=== PATIENT | male | born 1960 | race Caucasian/White ===

== ENCOUNTER 2018-09-17 07:20 | Inpatient (IN) | payer BC ==
[2018-09-17 08:25] LABS: Bilirubin Negative (Negative); Blood, Urine Negative (Negative); Clarity CLEAR (Clear); Glucose, Urine (Dipstick) Negative (Negative); Leukocyte Negative (Negative); Nitrite Negative (Negative); Protein, Urine (Dipstick) Negative (Neg-Trace); Specific Gravity, Urine 1.027 (1.002-1.036); Urobilinogen 0.2 mg/dL (0.2-1.0)
[2018-09-17 08:34] LABS: #Basophils 0.1 thou/uL (0.0-0.2); #Eosinphils 0.1 thou/uL (0.0-0.7); #Lymphocytes 1.9 thou/uL (1.20-3.40); #Monocytes 1.1 thou/uL (0.11-0.59); #Neutrophils 11.6 thou/uL (1.40-6.50); %Basophils 0.5 % (0.0-1.0); %Eosinophils 0.9 % (0.0-10.0); %Lymphocytes 12.7 % (21.0-51.0); %Monocytes 7.8 % (0.0-10.0); %Neutrophils 78.2 % (42.0-75.0); Hemoglobin 14.9 g/dL (14.0-18.0); Mean Corpuscular HGB CONC 34.1 g/dL (32.0-36.0); Mean Platelet Volume 6.8 fL (7.4-10.4); Platelet Count 194 thou/uL (130-400); Red Blood Cell (RBC) Count 4.81 mill/uL (4.70-6.10); White Blood Cell (WBC) Count 14.8 thou/uL (4.8-10.8)
[2018-09-17 08:55] LABS: ALT (SGPT) 31 U/L (8-55); AST (SGOT) 21 U/L (5-34); Albumin 4.3 g/dL (3.5-5.0); Alkaline Phosphatase 63 U/L (40-150); Anion Gap 12 mmol/L (10-20); BUN (Urea Nitrogen) 14 mg/dL (8.4-25.7); Bilirubin, Total 1.1 mg/dL (0.2-1.2); Calc. Creatinine Clearance 0 mL/min (70-130); Calcium 9.6 mg/dL (7.8-10.44); Carbon Dioxide 27 mmol/L (22-29); Chloride 102 mmol/L (98-107); Estimated GFR-MDRD 76; Globulin 3.4 g/dL (2.4-3.5); Glucose 111 mg/dL (70-105); Lipase 29 U/L (8-78); Protein, Total 7.7 g/dL (6.0-8.3); Sodium 137 mmol/L (136-145)
[2018-09-17] MEDS ORDERED: Acetaminophen 500 MG TAB ONE (09:57)
--- NOTE | 2018-09-17 10:19 | CT ---
ABDOMEN CT WITHOUT CONTRAST PELVIC CT WITHOUT CONTRAST: Date: 09/17/18 HISTORY: Left lower quadrant pain. FINDINGS: ABDOMEN CT: Lung bases are clear. Normal heart size. Visualized aorta has a normal caliber. Hypoattenuation of the liver due to hepatic steatosis. Limited evaluation of the solid organs due to lack of IV contrast. No acute abnormality with regards to the solid organs. Unremarkable gallbladder. Symmetric attenuation of the kidneys. Bilaterally, no obstructive uropathy. No gastrohepatic, retrocrural, or periportal lymphadenopathy. There are enlarged mesenteric lymph nodes with associated mesenteric fat stranding involving the left abdominal mesentery. There is also evidence of mesenteric fat stranding in the left lower quadrant w ith a small amount of fluid in the left paracolic gutter. No abscess. No pneumoperitoneum. Limited evaluation of the alimentary canal by lack of oral contrast. No evidence of small bowel obstr uction. Ileocecal junction is normal. Normal caliber appendix. Scattered diverticula. There is bowel wall thickening with pericolonic fat stranding involving the distal descending colon and proximal sig moid colon compatible with diverticulitis. Remainder of the sigmoid colon is unremarkable. CT PELVIS: No mass, lymphadenopathy, free air, or free fluid. Decompressed urinary bladder, limited evaluation. No lytic or blastic lesions. IMPRESSION: 1. Sigmoid colon diverticulosis with associated diverticulitis. Reactive changes in the mesentery wi th stranding and lymphadenopathy. No evidence of perforation or abscess. 2. No evidence of obstructive uropathy. Normal caliber appendix. 3. Hepatic steatosis with areas of fatty sparing. POS: [facility]
[2018-09-17] MEDS ORDERED: metroNIDAZOLE 500 MG/100 ML BAG ONE ×2 (10:31→10:34)
[2018-09-17] MEDS ORDERED: Morphine 4 MG/ML VIAL SLOW IVP PRN (11:04)
[2018-09-17] MEDS ORDERED: Ondansetron PF 4 MG/2 ML Vial IVP PRN (11:04)
--- NOTE | 2018-09-17 11:38 | HP ---
PRIMARY CARE PROVIDER: Marilyn Escobedo MD REASON FOR CONSULTATION: Referred to [facility] by [facility] for diverticulitis. HISTORY OF PRESENT ILLNESS: The patient started feeling bad 2 days ago, left lower quadrant pain, and felt full in the left lower quadrant. It is a sharp, cramping sensation. He has had no BM since. He had nausea and vomiting this morning. He has noted no blood in his stools, no blood in his emesis. He had no chills or sweats until he had fever today. PAST MEDICAL HISTORY: Pertinent for labile hypertension, currently on no medications. ALLERGIES: HE IS ALLERGIC TO IV CONTRAST, CODEINE, AND IODINE. PAST SURGICAL HISTORY: Carpal tunnel surgery, bilateral rotator cuff surgery, bilateral left knee arthroscopic surgery. FAMILY HISTORY: Coronary artery disease in multiple members of the father's side of his family including his father, grandfather, and grandmother. Mother's history is unknown as she is not in the picture. SOCIAL HISTORY: . Full code status. is next of kin. No tobacco. He is a social drinker, drinks 2 to 3 shots of whiskey when he is in a social event. REVIEW OF SYSTEMS: GENERAL: No headaches, dizziness, or fainting. EYES: No double vision, blurred vision, flashing light. EAR, NOSE, and THROAT: No ear pain or drainage. No nasal bleeding. No trouble swallowing. CARDIAC: No chest pain, orthopnea, or paroxysmal nocturnal dyspnea. RESPIRATIONS: No cough, wheezing, or asthma. GASTROINTESTINAL: See present illness. GENITOURINARY: No hematuria, dysuria, or nocturia. MUSCULOSKELETAL: No pain or swelling in his arms or legs. NEUROLOGIC: No strokes, seizures, or focal weakness. PSYCHIATRIC: No anxiety or depression. SKIN: No bruising, bleeding, or rash. HEME/LYMPH NODES: No tender or swollen lumps under his arms, in his neck, or in his groin. PHYSICAL EXAMINATION: GENERAL: He is an alert, pleasant gentleman. He states his pain is a medium level about 5. He states it was severe earlier. VITAL SIGNS: Blood pressure 138/87, pulse 91, respirations 16, temperature 102.6 rectal, and room air sat 99. HEAD, EYES, EARS, NOSE, THROAT: Revealed pupils are equal, round, and reactive to light. Extraocular movements are intact. Sclerae are white. Tympanic membranes clear. Nose is clear. Oral mucous membranes are wet. Dental hygiene is good. NECK: Supple without jugular venous distention, adenopathy, or thyromegaly. CHEST: Clear to auscultation and percussion. HEART: regular rate and rhythm. First and second heart sounds are clear. There are no appreciated murmurs or gallops. ABDOMEN: Soft. Bowel sounds are normal. There is no hepatosplenomegaly. No masses. Bowel sounds are diminished. He has tenderness moderate to deep palpation in the left lower quadrant. There is no guarding or rebound noted. EXTREMITIES: Reveal no cyanosis, clubbing, or edema. PULSES: Carotid, radial, femoral, and dorsalis pedis pulses are intact and symmetric. SKIN: Warm and dry without bruises or rash. HEME/LYMPH: Reveals no tender or swollen lymph nodes in the axilla, inguinal, or cervical area. NEUROLOGIC: Cranial nerves 2 through 12 are intact. Moves all extremities. DIAGNOSTIC DATA: EKG, none available, I have ordered one. Radiology; CT scan of the abdomen and pelvis without contrast reveals changes of bowel thickening and fat stranding, consistent with diverticulitis in the descending colon area, reviewed by me. LABORATORY DATA: Comprehensive metabolic profile normal except for a glucose of 111. White count elevated to 14.8 with an absolute neutrophilia, hemoglobin 14.9, platelet count 194,000. Urine is clear. ADMITTING DIAGNOSES: 1. Acute abdominal pain. 2. Diverticulitis. 3. Hypertension. PLAN: Cultures were drawn in the emergency room. IV antibiotics with Cipro and Flagyl were started in the emergency room, these will be continued. Blood pressure will be monitored. He will be given morphine sulfate for pain in the short term. Job ID: [id number] [facility]
[2018-09-17 13:11] VITALS: BMI 35.4
[2018-09-17] MEDS: Sodium Chloride 0.9% 1,000 ML IV SCH ×2 (13:22→22:47)
[2018-09-17] MEDS: Acetaminophen 325 MG TAB PO PRN (16:40)
[2018-09-17] MEDS: metroNIDAZOLE 500 MG in Premix Bag 1 BAG IVPB SCH (16:52)
[2018-09-17] MEDS ORDERED: Zolpidem Tartrate 5 MG TAB PO PRN (21:00)
[2018-09-18] MEDS: Acetaminophen 325 MG TAB PO PRN ×2 (00:36→14:17)
[2018-09-18] MEDS: metroNIDAZOLE 500 MG in Premix Bag 1 BAG IVPB SCH ×3 (02:55→16:38)
[2018-09-18] MEDS: Sodium Chloride 0.9% 1,000 ML IV SCH ×3 (03:04→19:53)
[2018-09-18 06:06] LABS: #Eosinphils 0.1 thou/uL (0.0-0.7); #Lymphocytes 2.3 thou/uL (1.20-3.40); #Monocytes 0.9 thou/uL (0.11-0.59); #Neutrophils 10.5 thou/uL (1.40-6.50); %Basophils 0.3 % (0.0-1.0); %Eosinophils 0.9 % (0.0-10.0); %Lymphocytes 16.7 % (21.0-51.0); %Monocytes 6.7 % (0.0-10.0); %Neutrophils 75.5 % (42.0-75.0); Hemoglobin 13.5 g/dL (14.0-18.0); Mean Corpuscular HGB CONC 33.2 g/dL (32.0-36.0); Mean Corpuscular Hemoglobin 30.6 pg (27.0-31.0); Mean Corpuscular Volume 91.9 fL (78.0-98.0); Mean Platelet Volume 6.9 fL (7.4-10.4); Platelet Count 178 thou/uL (130-400); RBC Distribution Width 11.9 % (11.5-14.5); Red Blood Cell (RBC) Count 4.41 mill/uL (4.70-6.10); White Blood Cell (WBC) Count 13.9 thou/uL (4.8-10.8)
[2018-09-18 06:25] LABS: Anion Gap 12 mmol/L (10-20); BUN (Urea Nitrogen) 8 mg/dL (8.4-25.7); Calc. Creatinine Clearance 142 mL/min (70-130); Carbon Dioxide 23 mmol/L (22-29); Chloride 107 mmol/L (98-107); Estimated GFR-MDRD Greater than 90; Glucose 92 mg/dL (70-105); Potassium 4.1 mmol/L (3.5-5.1)
[2018-09-18 06:26] LABS: Sodium 138 mmol/L (136-145)
[2018-09-18] MEDS ORDERED: Loperamide HCl 2 MG CAP PO PRN (07:32)
[2018-09-18] MEDS ORDERED: hydrALAZINE 20 MG/ML VIAL SLOW IVP PRN (07:32)
[2018-09-18] MEDS ORDERED: Loratadine 10 MG TAB PO PRN (07:32)
[2018-09-18] MEDS ORDERED: Bisacodyl 5 MG TAB PO PRN (07:32)
[2018-09-18] MEDS ORDERED: Ondansetron ODT 4 MG TAB PO PRN (07:32)
[2018-09-18] MEDS ORDERED: Sodium Chloride 0.65% Nasal 44 ML BOT EA NARE PRN (07:32)
[2018-09-18] MEDS ORDERED: Senokot S 8.6-50 MG TAB PO PRN (07:32)
[2018-09-18] MEDS ORDERED: Diabetic Tussin 200 MG/10 ML UDCUP PO PRN (07:32)
[2018-09-18] MEDS ORDERED: Artificial Tears 18 DROP/0.9 ML EA EYE PRN (07:32)
[2018-09-18] MEDS ORDERED: HYDROcodone/Acetaminophen 5/325 mg Tablet PO PRN (07:32)
[2018-09-18] MEDS ORDERED: Cepastat Lozenges 1 LOZ PO PRN (07:32)
[2018-09-18] MEDS: Enoxaparin Sodium 40 MG/0.4 ML SYRINGE SC SCH (08:30)
[2018-09-18] MEDS: Saccharomyces boulardii 250 MG CAP PO SCH (08:31)
--- NOTE | 2018-09-18 11:17 | PDOC.PN ---
- Subjective Encounter Start Date: 09/18/18 Encounter Start Time: 08:30 -: old records requested/rev Patient seen and examined. this morning he has fever, he las less abdominal pain , personally feels better, No new complaints. No overnight events - Objective Resuscitation Status - Order Detail: 09/17/18 11:00 Resuscitation Status Routine Resuscitation Status: FULL: Full Resuscitation MAR Reviewed: Yes Vital Signs & Weight: Vital Signs (12 hours) Temp Pulse Resp BP Pulse Ox 09/18/18 07:29 99.2 F 85 16 118/84 95 09/18/18 03:54 98.8 F 85 16 109/73 93 L 09/18/18 03:00 99 F 09/18/18 00:29 101.9 F H 98 18 104/69 96 Weight Weight 233 lb 3.2 oz I&O: 09/17/18 09/18/18 09/19/18 06:59 06:59 06:59 Intake Total 1850 Balance 1850 Result Diagrams: 09/18/18 05:38 09/18/18 05:38 Radiology Reviewed by me: Yes Phys Exam - Physical Examination Constitutional: NAD HEENT: PERRLA, moist MMs, sclera anicteric, oral pharynx no lesions Neck: no JVD, supple Respiratory: no wheezing, no rales, no rhonchi Cardiovascular: RRR, no significant murmur, no rub Gastrointestinal: soft, no distention, positive bowel sounds mild LLQ tenderness Musculoskeletal: no edema, pulses present Neurological: non-focal, normal sensation, moves all 4 limbs Lymphatic: no nodes Psychiatric: normal affect, A&O x 3 Skin: no rash, normal turgor Dx/Plan (1) Acute diverticulitis Code(s): K57.92 - DVTRCLI OF INTEST, PART UNSP, W/O PERF OR ABSCESS W/O BLEED Status: Acute Comment: diverticulitis of sigmoid colon (2) Hypertension Code(s): I10 - ESSENTIAL (PRIMARY) HYPERTENSION Status: Chronic (3) Obesity (BMI 30-39.9) Code(s): E66.9 - OBESITY, UNSPECIFIED Status: Chronic - Plan cont current plan of care, plan discussed w/ family, continue antibiotics * continue IV cipro and flagyl * continue IVF today * advance diet today * expecting discharge tomorrow if afebrile * medication reviewed as below * symptomatic treatment. Review of Systems - Review of Systems Constitutional: fever. negative: chills, sweats, weakness, malaise, other Eyes: negative: Pain, Vision Change, Conjunctivae Inflammation, Eyelid Inflammation, Redness, Other ENT: negative: Ear Pain, Ear Discharge, Nose Pain, Nose Discharge, Nose Congestion, Mouth Pain, Mouth Swelling, Throat Pain, Throat Swelling, Other Respiratory: negative: Cough, Dry, Shortness of Breath, Hemoptysis, SOB with Excertion, Pleuritic Pain, Sputum, Wheezing Cardiovascular: negative: chest pain, palpitations, orthopnea, paroxysmal nocturnal dyspnea, edema, light headedness, other Gastrointestinal: Abdominal Pain. negative: Nausea, Vomiting, Diarrhea, Constipation, Melena, Hematochezia, Other Genitourinary: negative: Dysuria, Frequency, Incontinence, Hematuria, Retention , Other Musculoskeletal: negative: Neck Pain, Shoulder Pain, Arm Pain, Back Pain, Hand Pain, Leg Pain, Foot Pain, Other Skin: negative: Rash, Lesions, Faizan, Bruising, Other - Medications/Allergies Allergies/Adverse Reactions: Allergies Allergy/AdvReac Type Severity Reaction Status Date / Time iodine Allergy Verified 09/21/15 13:18 shellfish derived Allergy Verified 09/21/15 13:18 Medications: Current Medications Acetaminophen (Tylenol) 650 mg PO Q4H PRN PRN Reason: Headache/Fever/Mild Pain (1-3) Last Admin: 09/18/18 00:36 Dose: 650 mg Hydrocodone Bitart/Acetaminophen ([place] 5/325) 1 tab PO Q4H PRN PRN Reason: Moderate Pain (4-6) Artificial Tears (Tears Naturale) 2 drop EA EYE PRN PRN PRN Reason: Dry Eyes Bisacodyl (Dulcolax) 10 mg PO DAILYPRN PRN PRN Reason: Constipation Enoxaparin Sodium (Lovenox) 40 mg SC 0900 [facility] Last Admin: 09/18/18 08:30 Dose: 40 mg Guaifenesin (Robitussin Sf) 200 mg PO Q4H PRN PRN Reason: Cough Hydralazine HCl (Apresoline) 10 mg SLOW IVP Q4H PRN PRN Reason: SBP > 180 and HR < 70 Metronidazole 500 mg/ Device 100 mls @ 100 mls/hr IVPB Q8H [facility] Last Admin: 09/18/18 08:31 Dose: 100 mls Sodium Chloride (Normal Saline 0.9%) 1,000 mls @ 124 mls/hr IV .Q8H4M [facility] Last Admin: 09/18/18 08:32 Dose: 1,000 mls Ciprofloxacin/Dextrose 400 mg/ (Device) 200 mls @ 200 mls/hr IVPB Q12HR [facility] Last Admin: 09/18/18 08:30 Dose: 200 mls Loperamide HCl (Imodium) 2 mg PO PRN PRN PRN Reason: Diarrhea/Loose Stools Loratadine (Claritin) 10 mg PO DAILYPRN PRN PRN Reason: Sinus Symptoms Morphine Sulfate (Morphine) 4 mg SLOW IVP Q4H PRN PRN Reason: Severe Pain Last Admin: 09/17/18 16:40 Dose: 4 mg Ondansetron HCl (Zofran) 4 mg IVP Q6H PRN PRN Reason: Nausea/Vomiting Ondansetron HCl (Zofran Odt) 4 mg PO Q6H PRN PRN Reason: Nausea/Vomiting Saccharomyces Boulardii (Florastor) 250 mg PO DAILY [facility] Last Admin: 09/18/18 08:31 Dose: 250 mg Senna/Docusate Sodium (Senokot S) 2 tab PO BID PRN PRN Reason: Constipation Sodium Chloride (Flush - Normal Saline) 10 ml IVF Q12HR [facility] Last Admin: 09/18/18 08:37 Dose: Not Given Sodium Chloride (Flush - Normal Saline) 10 ml IVF PRN PRN PRN Reason: Saline Flush Sodium Chloride ([place] Nasal [place] 0.65%) 0 ml EA NARE QIDPRN PRN PRN Reason: Nasal Congestion Throat Lozenges (Cepastat Lozenges) 1 kervin PO Q2H PRN PRN Reason: Sore Throat Zolpidem Tartrate (Ambien) 5 mg PO HSPRN PRN PRN Reason: Insomnia
[2018-09-19] MEDS: Sodium Chloride 0.9% 1,000 ML IV SCH ×2 (00:08→10:40)
[2018-09-19] MEDS: Acetaminophen 325 MG TAB PO PRN (00:14)
[2018-09-19] MEDS: metroNIDAZOLE 500 MG in Premix Bag 1 BAG IVPB SCH ×2 (02:10→08:01)
[2018-09-19 06:58] LABS: #Eosinphils 0.3 thou/uL (0.0-0.7); #Lymphocytes 1.4 thou/uL (1.20-3.40); #Monocytes 0.7 thou/uL (0.11-0.59); #Neutrophils 4.7 thou/uL (1.40-6.50); %Basophils 0.4 % (0.0-1.0); %Eosinophils 3.7 % (0.0-10.0); %Lymphocytes 19.7 % (21.0-51.0); %Monocytes 10.3 % (0.0-10.0); %Neutrophils 65.9 % (42.0-75.0); Hemoglobin 13.6 g/dL (14.0-18.0); Mean Corpuscular HGB CONC 33.7 g/dL (32.0-36.0); Mean Corpuscular Hemoglobin 31.2 pg (27.0-31.0); Mean Corpuscular Volume 92.8 fL (78.0-98.0); Mean Platelet Volume 6.6 fL (7.4-10.4); Platelet Count 208 thou/uL (130-400); RBC Distribution Width 11.9 % (11.5-14.5); Red Blood Cell (RBC) Count 4.35 mill/uL (4.70-6.10); White Blood Cell (WBC) Count 7.1 thou/uL (4.8-10.8)
[2018-09-19 07:15] LABS: Anion Gap 13 mmol/L (10-20); BUN (Urea Nitrogen) 9 mg/dL (8.4-25.7); Calc. Creatinine Clearance 130 mL/min (70-130); Calcium 9.3 mg/dL (7.8-10.44); Carbon Dioxide 22 mmol/L (22-29); Chloride 110 mmol/L (98-107); Estimated GFR-MDRD 83; Glucose 90 mg/dL (70-105); Potassium 4.1 mmol/L (3.5-5.1); Sodium 141 mmol/L (136-145)
[2018-09-19 07:46] VITALS: BP 136/88
[2018-09-19] MEDS: Enoxaparin Sodium 40 MG/0.4 ML SYRINGE SC SCH (08:04)
[2018-09-19] MEDS: Saccharomyces boulardii 250 MG CAP PO SCH (08:05)
[2018-09-19 11:17] VITALS: TEMP 98.3
--- NOTE | 2018-09-19 12:45 | PQF ---
CLINICAL DOCUMENTATION IMPROVEMENT CLARIFICATION FORM: ICD-10 Updated PLEASE DO AN ADDENDUM TO THE PROGRESS NOTE WITH ANY DOCUMENTATION UPDATES OR ADDITIONS AND CARRY THROUGH TO DC SUMMARY. THANK YOU. DATE: 09/19/18 ATTN: DR. GUNTER Please exercise your independent, professional judgment in responding to the clarification form. Clinical indicators are provided on the bottom of this form for your review Please check appropriate box(s) to clarify if the following diagnosis has been ruled in or ruled out: "SEPSIS" [ x ] Ruled in diagnosis [ x ] Continue to treat [ ] Resolved [ ] Ruled out diagnosis [ ] Cannot rule out diagnosis [ ] Other diagnosis [ ] Unable to determine In addition, please specify: Present on Admission (POA): [ x ] Yes [ ] No [ ] Unable to determine For continuity of documentation, please document condition throughout progress notes and discharge summary. Thank You. CLINICAL INDICATORS - SIGNS / SYMPTOMS / LABS ER NOTE: "SEPSIS" PULSE 120 TEMP 102.6 WBC 14.8 RISKS: DIVERTICULITIS TREATMENT: IV FLUIDS (ER-PRESENT) IV FLAGYL (ER-PRESENT) IV CIPRO (ER-PRESENT) BLOOD CULTURES SERIAL LABS SAP Vp Product [employer] Winform Viewer(This form is maintained as a part of the permanent medical record) 2014 [employer]. All Rights Reserved [email or web address] Office: [phone] [facility]
--- NOTE | 2018-09-19 13:23 | DIS ---
DATE OF ADMISSION: 09/17/2018 DATE OF DISCHARGE: 09/19/2018 DISCHARGE DISPOSITION: Home. FOLLOWUP: 1. Follow up with primary care physician, Dr. Marilyn Escobedo in 1 week. 2. Follow up with virology teacher, Dr. Alla Kaiser as scheduled. INPATIENT CONSULTANTS: None. DISCHARGE MEDICATIONS: 1. Ciprofloxacin 500 mg b.i.d. for next 5 days. 2. Flagyl 500 mg 3 times daily for next 5 days. 3. Florastor 250 mg daily. The patient was seen on the day of discharge. Denies any new complaints. No chest pain, shortness of breath, or palpitations. SIGNIFICANT LABORATORY DATA: WBC on admission 14.8, at discharge 7.1. Sodium 141, potassium 4.1, and creatinine of 0.93. Urinalysis was negative. Blood cultures were negative. CT scan of the abdomen and pelvis without contrast on admission showed sigmoid colon diverticulosis with associated diverticulitis. There were reactive changes in the mesentery with standing and lymphadenopathy. BRIEF HOSPITAL COURSE: The patient is a 58-year-old male with diverticulosis as well as recent colonoscopy, presented to the hospital with left lower quadrant abdominal pain along with nausea and vomiting. Please refer to the history and physical for further details. The patient was admitted to the hospital with a diagnosis of acute diverticulitis. He was placed on IV ciprofloxacin and Flagyl. He was placed on clear liquid diet that has been advanced to low-residue diet. Today, on the day of discharge, he appears comfortable. He denies any abdominal pain, nausea, or vomiting. His WBC counts are back to normal. His temperature over the last 24 hours has been between 98 and 99. He appears stable for discharge. He was counseled on dietary modification for diverticulosis. FINAL DIAGNOSES: 1. Sepsis secondary to acute sigmoid diverticulitis. 2. History of diverticulosis. 3. Obesity with a BMI of 35.5. 4. Chronic kidney disease, stage 2. 5. Mild chronic anemia. 6. History of hypertension, diet controlled. 7. Iodine allergy. Plan of care was discussed with the patient in detail. He stated understanding. Job ID: [id number]
[2018-09-19] MEDS ORDERED: metroNIDAZOLE 500 MG TAB PO SCH (15:00)
[2018-09-19] MEDS ORDERED: Ciprofloxacin 500 MG TAB PO SCH (20:00)
== END 2018-09-19 13:24 | disposition home or self-care (01) | DRG 872 ==
LOC: ERS 07:20 → T4-A 10:00
PROVIDERS: ADMIT Internal Medicine; ATTEND Internal Medicine
DX: A41.9 Sepsis, unspecified organism (principal); K57.32 Diverticulitis of large intestine without perforation or abscess without bleeding; E66.9 Obesity, unspecified; N18.2 Chronic kidney disease, stage 2 (mild); D63.1 Anemia in chronic kidney disease; I12.9 Hypertensive chronic kidney disease with stage 1 through stage 4 chronic kidney disease, or unspecified chronic kidney disease; Z91.041 Radiographic dye allergy status; Z88.5 Allergy status to narcotic agent; Z68.35 Body mass index [BMI] 35.0-35.9, adult
CPT/HCPCS: 36415; 74176; 80048; 80053; 81003; 83605; 83690; 85025; 87040; J0744; J1650; J2270

== ENCOUNTER 2019-09-24 07:17 | Outpatient (CLI) | payer BC ==
--- NOTE | 2019-09-24 08:37 | ULT ---
RIGHT UPPER QUADRANT ULTRASOUND: Date: 09/24/2019 HISTORY: Right upper quadrant pain. FINDINGS: The liver demonstrates increased echogenicity consistent with fatty infiltration, without focal mass or intrahepatic ductal dilatation. No gallstones, gallbladder wall thickening, or pericholecystic flu id is seen. The common duct measures 4.0 mm in diameter. The right kidney and visualized portions of the pancreas are unremarkable. IMPRESSION: 1. Fatty liver. 2. No evidence of cholelithiasis. POS: [facility]
== END 2019-09-24 07:18 | disposition home or self-care (01) ==
LOC: ULT 07:17
PROVIDERS: ATTEND Physician Assistant Medical
DX: R10.11 Right upper quadrant pain (principal); K76.0 Fatty (change of) liver, not elsewhere classified
CPT/HCPCS: 76705